=== PATIENT | female | born 1995 | race Caucasian/White ===

== ENCOUNTER 2019-02-08 09:45 | Emergency (ER) | payer OTHER ==
[~2019-02-08] VITALS: Ht 154.9 cm; Wt 49.9 kg
[2019-02-08 11:16] LABS: URINE BILIRUBIN NEGATIVE (Negative); URINE BLOOD NEGATIVE (Negative); URINE CLARITY CLEAR; URINE COLOR YELLOW; URINE GLUCOSE-RANDOM* NEGATIVE (Negative); URINE KETONES NEGATIVE (Negative); URINE LEUKOCYTES-REFLEX NEGATIVE (Negative); URINE NITRITE-REFLEX NEGATIVE (Negative); URINE PROTEIN (DIPSTICK) NEGATIVE (Negative); URINE UROBILINOGEN 0.2 E.U./dl (0.2-1.0)
[2019-02-08 11:27] LABS: ABSOLUTE NEUTROPHILS 4.5 thou/uL (1.4-8.2); BASOPHILS 0.6 % (0.0-2.0); EOSINOPHILS 0.4 % (0.0-3.0); HEMATOCRIT 39.3 % (37.0-47.0); HEMOGLOBIN 13.7 gm/dL (12.0-15.0); LYMPHOCYTES 15.5 % (24.0-44.0); MCH 31.6 pg (26.0-34.0); MCHC 34.7 g/dL (28.0-37.0); MONOCYTES 4.6 % (1.0-8.0); PLATELET COUNT 190 thou/uL (150-400); POLYS 78.9 % (36.0-66.0); RBC 4.32 mil/uL (4.20-5.00); RDW 12.2 % (10.5-14.5); WBC 5.8 thou/uL (4.0-11.0)
[2019-02-08 11:37] LABS: CALCIUM 9.3 mg/dL (8.5-10.1); CREATININE 0.8 mg/dL (0.6-1.0); POTASSIUM 3.5 mmol/L (3.5-5.1)
[2019-02-08 12:12] VITALS: BP 112/70
--- NOTE | 2019-02-08 17:18 | EKG ---
[place] [address] [email or web address] [address] ELECTROCARDIOGRAM REPORT Name: KATYA CAMARA Room #: [facility]#: [id number] ������������������ Admission: 02/08/19 ������������������ Attend Phys: Discharge: 02/08/19 ������������������ Date of : [birth year] Report #: [id number] ����������������������������������������������������������������� [id number] THIS REPORT FOR: //name// [facility] ED Test Date: 2019-02-08 Test Time: 10:03:10 Pat Name: KATYA CAMARA Department: Room: Gender: F Sales Development Executive: MERCEDEZPavan : 1995 Requested By: Yang Rivero Order Number: [id number] MD: Fabio Arellano Measurements Intervals [place] Rate: 79 P: 68 UT: 120 QRS: 58 QRSD: 77 T: 25 QT: 401 QTc: 460 Interpretive Statements Sinus rhythm Normal tracing No previous ECG available for comparison Electronically Signed On 02-08-2019 17:18:19 CDT by Fabio Arellano [email or web address] ��������������������������������������������� <ELECTRONICALLY SIGNED> ���������������������������������������� By: Fabio Arellano MD, [facility] ��������������������������������������������� 02/08/19 1718 1003 1003 Fabio Arellano MD, FACC /EPI
== END 2019-02-08 12:16 | disposition home or self-care (01) ==
LOC: ER 09:45
PROVIDERS: Nurse Practitioner Family
DX: R55 Syncope and collapse (principal); R51 Headache